=== PATIENT | female | born 1940 | race Caucasian/White ===

== ENCOUNTER 2018-01-23 20:54 | Emergency (ER) | payer MEDICARE, MEDICAID ==
[~2018-01-23] VITALS: Ht 157.5 cm; Wt 68.0 kg
[~2018-01-23 20:54] MED LIST: EXCEDRIN CAPLE1 EACH PO; HIGH BLOOD PRESSURE; HYCET 7.5 MG-3473 ML PO; LEVOTHYROXIN; NAPROSYN500 MG PO; PAXIL10 MG PO; PRILOSEC20 MG PO; Synthroid 0.088 MG PO
[2018-01-23] MEDS ORDERED: HYDROCHLOROTHIA25 M2 PO (21:08)
[2018-01-23 21:27] LABS: ABSOLUTE BASOPHILS 0.1 thou/uL (0.0-0.2); ABSOLUTE EOSINOPHILS 0.3 thou/uL (0.0-0.7); ABSOLUTE LYMPHOCYTES 2.1 thou/uL (0.8-5.3); ABSOLUTE MONOCYTES 0.7 thou/uL (0.0-1.2); ABSOLUTE NEUTROPHILS 5.2 thou/uL (1.6-8.1); BASOPHILS 1.1 %; EOSINOPHILS 3.5 %; HEMATOCRIT 36.9 % (37.0-47.0); HEMOGLOBIN 12.5 gm/dL (12.0-15.0); LYMPHOCYTES 25.5 %; MCH 30.8 pg (26.0-34.0); MCHC 33.8 g/dL (28.0-37.0); MCV 91.1 fL (80.0-100.0); MONOCYTES 8.1 %; NUCLEATED RBCS 0 /100WBC; PLATELET COUNT* 328 thou/uL (150-400); POLYS 61.8 %; RBC 4.06 mil/uL (4.20-5.00); RDW-CV 13.1 % (10.5-14.5); WBC 8.4 thou/uL (4.0-11.0)
[2018-01-23 21:31] LABS: CALCIUM 9.4 mg/dL (8.5-10.1); POTASSIUM 3.2 mmol/L (3.5-5.1)
[2018-01-23 21:37] LABS: ALBUMIN 3.3 g/dL (3.4-5.0); TOTAL BILIRUBIN 0.4 mg/dL (<0.1-1.0); TOTAL PROTEIN 6.9 g/dL (6.4-8.2)
[2018-01-23 21:42] VITALS: BP 130/58
== END 2018-01-23 21:46 | disposition home or self-care (01) ==
LOC: M.ERS 20:54
PROVIDERS: Emergency Medicine
DX: K62.5 Hemorrhage of anus and rectum (principal); E03.9 Hypothyroidism, unspecified; Z85.3 Personal history of malignant neoplasm of breast; Z85.850 Personal history of malignant neoplasm of thyroid; Z88.1 Allergy status to other antibiotic agents

== ENCOUNTER 2018-04-26 18:22 | Observation (INO) | payer MEDICARE, MEDICAID ==
[~2018-04-26] VITALS: Ht 152.4 cm; Wt 156.5 kg
[~2018-04-26 18:22] MED LIST changes: +HYDROCHLOROTHIA25 M2 PO
[2018-04-26 18:29] VITALS: BP 155/54
[2018-04-26] MEDS ORDERED: TRAMADOL 50 MG50 MG PO (18:32)
[2018-04-26] MEDS ORDERED: NORVASC10 MG PO (18:33)
[2018-04-26] MEDS ORDERED: ZANTAC 7575 MG PO (18:33)
[2018-04-26 19:14] LABS: ABSOLUTE BASOPHILS 0.1 thou/uL (0.0-0.2); ABSOLUTE EOSINOPHILS 0.4 thou/uL (0.0-0.7); ABSOLUTE LYMPHOCYTES 2.3 thou/uL (0.8-5.3); ABSOLUTE MONOCYTES 0.6 thou/uL (0.0-1.2); ABSOLUTE NEUTROPHILS 5.4 thou/uL (1.6-8.1); EOSINOPHILS 4.3 %; HEMATOCRIT 38.8 % (37.0-47.0); HEMOGLOBIN 13.1 gm/dL (12.0-15.0); LYMPHOCYTES 26.3 %; MCH 30.4 pg (26.0-34.0); MCHC 33.9 g/dL (28.0-37.0); MCV 89.8 fL (80.0-100.0); MONOCYTES 6.6 %; MPV 7.5 fl. (7.2-11.1); NUCLEATED RBCS 0 /100WBC; PLATELET COUNT* 318 thou/uL (150-400); POLYS 61.8 %; RBC 4.31 mil/uL (4.20-5.00); RDW-CV 13.4 % (10.5-14.5); WBC 8.7 thou/uL (4.0-11.0)
[2018-04-26 19:19] LABS: ANION GAP 10 mmol/L (7-16); BUN 24 mg/dL (7-18); CALCIUM 9.5 mg/dL (8.5-10.1); CHLORIDE 101 mmol/L (98-107); CO2 27 mmol/L (21-32); GLUCOSE 118 mg/dL (70-99); SODIUM 138 mmol/L (136-145)
[2018-04-26 19:21] LABS: PROTIME 10.1 Seconds (9.20-11.50)
[2018-04-26 19:30] LABS: ALBUMIN 3.8 g/dL (3.4-5.0); ALKALINE PHOSPHATASE 79 U/L (46-116); LIPASE 139 U/L (73-393); NT-PRO BRAIN NAT PEPTIDE 234 pg/mL (<300); SGOT 21 U/L (15-37); SGPT 22 U/L (30-65); TOTAL BILIRUBIN 0.6 mg/dL (<0.1-1.0); TOTAL PROTEIN 7.9 g/dL (6.4-8.2); TROPONIN-I LEVEL <0.06 ng/mL (<0.06)
[2018-04-26 19:42] LABS: POTASSIUM 2.7 mmol/L (3.5-5.1)
[2018-04-26 20:05] LABS: URINE BILIRUBIN NEGATIVE (Negative); URINE BLOOD NEGATIVE (Negative); URINE CLARITY CLEAR; URINE COLOR YELLOW; URINE GLUCOSE-RANDOM NEGATIVE (Negative); URINE KETONES TRACE (Negative); URINE LEUKOCYTES-REFLEX NEGATIVE (Negative); URINE NITRITE-REFLEX NEGATIVE (Negative); URINE PROTEIN NEGATIVE (Negative); URINE UROBILINOGEN 0.2 E.U./dl (0.2-1.0)
[2018-04-26 22:31] VITALS: BP 149/80
[2018-04-26 22:45] VITALS: BP 175/78
[2018-04-27] VITALS (8 sets, daily range): BP systolic 114–146; BP diastolic 68–81
--- NOTE | 2018-04-27 00:12 | NUR ---
PATIENT ADMITTED TO ROOM 227 FROM ER AT APPROXIMATELY 2230. VSS ON RA, ALTHOUGH BP ELEVATED. NO C/O PAIN AT THIS TIME. PATIENT ORIENTED TO ROOM AND POLICIES AND ASSESSMENT CHARTED. ADMISSION ROUTINES PERFORMED. HOURLY ROUNDS TO BE MADE. IV IN LEFT AC- FLUIDS STARTED @ 100ML/HR. 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 PATIENT INSTRUCTED TO CALL WHEN NEEDING ASSISTANCE. WILL CONTINUE WITH PLAN OF CARE AND NURSING TO MONITOR.
[2018-04-27 04:52] LABS: CREATININE 0.7 mg/dL (0.6-1.3)
[2018-04-27 05:19] LABS: POTASSIUM 2.8 mmol/L (3.5-5.1)
--- NOTE | 2018-04-27 07:03 | NUR ---
PATIENT HAS SLEPT WELL WITHOUT ANY COMPLAINTS SINCE BEING ADMITTED TO UNIT. VSS ON RA ALTHOUGH BP ELEVATED. PATIENT HAS REMAINED NPO SINCE MIDNIGHT. NEURO CONSULTED. IV IN LEFT AC-NS @ 100ML/HR. PATIENT INSTRUCTED TO USE CALL LIGHT WHEN NEEDING ASSISTANCE. HOURLY ROUNDS MADE. WILL CONTINUE WITH PLAN OF CARE AND NURSING TO MONITOR.
[2018-04-27] MEDS ORDERED: POTASSIUM20 PO (09:26)
--- NOTE | 2018-04-27 11:23 | NUR ---
ASSUMED PT CARE AT 0730, FULL ASSESMENT DONE CHARTED. PT A/O X4, DENIES PAIN, UP WITH ASSIST, WANTS TO GO HOME, STATES SHE "FEELS MUCH BETTER". PTS VSS, SR ON THE MONITOR. REVIEWED MEDS AND LABS WITH PT. DISCHARGE ORDERS RECEIVED. FALL PRECAUTIONS IN PLACE, PT USING CALL LIGHT APPROPRIATLY. WILL CONTINUE WITH PLAN OF CARE.
--- NOTE | 2018-04-27 19:34 | CON ---
[address] [address] CONSULTATION Name: MIGUE LOMBARDI Room: [address] Yesenia Aguilar#: [id number] Admission: 04/26/18 Attend Phys: Nicolas Payne MD Discharge: 04/27/18 Date of : 42 Report #: [id number] THIS REPORT FOR: //name// CC: Nicolas Patel DATE OF SERVICE: 04/27/2018 HISTORY OF PRESENT ILLNESS: This is a 77-year-old female patient who was evaluated by me for an episode of syncope. I reviewed the patient's records, and she described the same history, which has been summarized in the notes. The only additional history I got that she was under a lot of stress from last 2-3 weeks. That stress was finally over. She has gone to celebrate where she had an unstructured syncope episode without any tonic-clonic activity. She did have a CT scan of the head and that was unremarkable. She feels back to her baseline. Her potassium was low at 2.7 and she does not know her medication, but thinks that she may have been taking a diuretic. REVIEW OF SYSTEMS: Indicates she has not had this kind of loss of consciousness before. She is not a known diabetic. I carried out 14-point review of systems and she really does not complain of much symptoms like any new eye, ENT, cardiac, respiratory, GI, , musculoskeletal, constitutional, dermatological, hematological, psychiatric, throat, allergic symptom associated with present symptomatology. PAST MEDICAL HISTORY: Positive for hypertension. FAMILY HISTORY: Negative for early age stroke. SOCIAL HISTORY: She denies the use of alcohol. PHYSICAL EXAMINATION: Indicates she is alert. She is responsive. She can follow simple commands. Her speech, concentration, fund of knowledge and memory is at her baseline. Cranial nerve examination 2-12 looks unremarkable. She has no papilledema. There is no carotid bruit. There is no thyroid mass. She is moderately built individual who does not have any dysmorphic features of eyes, ears and face. Her vision and hearing look adequate. Her pulses are palpable. Her blood pressure is 134/74, respirations 17, pulse is 69, temperature 97.6. LABORATORY DATA: WBC count is 8.7. Sodium is 140, potassium is 2.8. She did have a CT scan of the head, which was unremarkable. IMPRESSION: This patient had an episode of syncope. I do not know what the etiology for that was, but she needs further workup to determine the etiology of that. She needs both cardiac and neurological workup. I strongly recommended that to the patient. I discussed with her that [place] [id number] CONSULTATION Name: MIGUE LOMBARDI Room: [address] Yesenia Aguilar#: [id number] Admission: 04/26/18 Attend Phys: Nicolas Payne MD Discharge: 04/27/18 Date of : 42 Report #: [id number], MRA of the head and neck and an EEG. She should also have a cardiology workup whatever they recommend. She does not want to do that. She is adamant that she is going home today. I told her if that is the case, I can do a CT angio of the head and neck to make sure there is no etiology there. She said she is not having any more testing today and she is going home. She is competent to make a decision. She understands what my recommendation is and the consequences of not following the recommendation. She basically wants to go home and said that she will get an MRI/MRA and EEG as an outpatient. That is a complicated process to schedule that because she has to call our office to get it scheduled and if she does I will be happy to help her, but will take a few days to get all of these things done because orders have to be written as an outpatient. If she wants to do that, she will call me and I will be happy to schedule those testing and then follow up as an outpatient. I talked to Dr. Payne, I talked to the nurses. The patient is very clear that she is going home, but she does indicate that she will probably call us and get those tests as an outpatient. More than 50 minutes of time was spent taking care of this patient today and majority of that time was spent counseling the patient and coordinating her care. <ELECTRONICALLY SIGNED> By: Carson Turner MD 04/27/18 1934 1405 1720Carson Turner MD /nt
--- NOTE | 2018-04-28 11:30 | EKG ---
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 : 1940 Requested By: Lance Thurston Order Number: [id number] : Mike Sahni Measurements Intervals [place] Rate: 64 P: 41 ME: 250 QRS: 1 QRSD: 87 T: 19 QT: 430 QTc: 444 Interpretive Statements Sinus rhythm Prolonged ME interval Abnormal R-wave progression, early transition Compared to ECG 08/01/2015 15:29:21 First degree AV block now present Electronically Signed On 04-28-2018 11:30:19 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
== END 2018-04-27 16:45 | disposition home or self-care (01) ==
LOC: M.ERS 18:22 → M.TBA-ER 21:29 → M.2W 21:29
PROVIDERS: Emergency Medicine; ADMIT Internal Medicine
DX: R55 Syncope and collapse (principal); E87.6 Hypokalemia; I10 Essential (primary) hypertension; E03.9 Hypothyroidism, unspecified; I89.0 Lymphedema, not elsewhere classified; M48.00 Spinal stenosis, site unspecified; Z85.3 Personal history of malignant neoplasm of breast; Z85.850 Personal history of malignant neoplasm of thyroid; Z79.899 Other long term (current) drug therapy; Z87.891 Personal history of nicotine dependence